=== PATIENT | male | born 1945 | race Caucasian/White ===

== ENCOUNTER → 2017-12-04 | Outpatient (CLI) | payer MEDICARE, BC ==
[~2017-12-04] MED LIST: ASPIR-TRIN325 M1 PO; CELEBREX200 MG PO; DIOVAN HCT 11 TABLE1 PO; Metamucil Packet PO; NAPROSYN500 MG PO; SENOKOT S,PE1 TABLET PO; TRICOR145 MG PO; VALIUM5 MG PO; VYTORIN 10/81 TABLET PO; Vicodin,Lortab 5/500 PO; Vitamin B-12 PO
== END | disposition home or self-care (01) ==
LOC: CDC 11:24
DX: Z01.810 Encounter for preprocedural cardiovascular examination (principal); M48.062 Spinal stenosis, lumbar region with neurogenic claudication; M54.16 Radiculopathy, lumbar region; I49.8 Other specified cardiac arrhythmias; R94.31 Abnormal electrocardiogram [ECG] [EKG]
CPT/HCPCS: 93000

== ENCOUNTER 2018-01-20 05:28 | Day surgery (SDC) | payer OTHER, BC ==
[~2018-01-20] VITALS: Ht 177.8 cm; Wt 113.2 kg
[~2018-01-20 05:28] MED LIST changes: +ASPIR 8181 M1 PO; +AVAPRO75 MG PO; +FISH OIL 1,0001 EA11 PO; +LIPITOR80 MG PO; +METAMUCIL POWD822 G1 PO; +PREVAGAN PO; +TYLENOL EXTRA500 MG PO; +VITAMIN B-121000 MCG PO; +VITAMIN D31000 UNIT PO; -Vitamin B-12 PO
[2018-01-20 06:23] VITALS: BP 151/69
[2018-01-20 13:32] VITALS: BP 155/71
[2018-01-20 16:17] VITALS: BP 154/70
[2018-01-20 19:09] VITALS: BP 132/72
[2018-01-20 23:11] VITALS: BP 135/63
[2018-01-21 03:16] VITALS: BP 139/61
[2018-01-21 07:30] VITALS: BP 140/70
[2018-01-21] MEDS ORDERED: HYDROCODON-ACE1 EAC7 PO (07:49)
[2018-01-21] MEDS ORDERED: TIZANIDINE HCL2 MG PO (07:49)
== END 2018-01-21 10:45 | disposition home or self-care (01) ==
LOC: SDC 05:28 → 2SOUTH 10:28 → ENRESERV 10:31 → SDC 11:49 → 2EAST 12:46 → SDC 12:47 → ENPENDDIS 01-21 10:34 → 2EAST 01-21 10:45
PROC: 01NB0ZZ Release Lumbar Nerve, Open Approach (ICD-10-PCS; principal; 2018-01-20)
DX: M48.062 Spinal stenosis, lumbar region with neurogenic claudication (principal); M47.816 Spondylosis without myelopathy or radiculopathy, lumbar region; M46.86 Other specified inflammatory spondylopathies, lumbar region; R53.1 Weakness; E66.9 Obesity, unspecified; Z68.35 Body mass index [BMI] 35.0-35.9, adult
CPT/HCPCS: 72020; 76000; G0378; J0131; J0690; J1100; J1170; J2405; J2930; J3010; J3370; J3480; S0020